=== PATIENT | female | born 2000 | race Caucasian/White ===

== ENCOUNTER 2018-05-19 05:53 | Emergency (ER) | payer OTHER ==
[~2018-05-19] VITALS: Ht 152.4 cm; Wt 72.6 kg
[~2018-05-19 05:53] MED LIST: CIPR250T30 PO
[2018-05-19] MEDS ORDERED: IV NORMAL SALINE 1000ML BAG 1,000 ML IV ONE (06:30)
[2018-05-19 06:43] LABS: BASO # 0.1 x10^3/uL (0.0-0.2); BASO % 1 % (0-3); EOS # 0.3 x10^3/uL (0.0-0.7); EOS % 4 % (0-3); HEMATOCRIT 38.7 % (36.0-47.0); HEMOGLOBIN 12.8 g/dL (12.0-15.5); LYMPH # 3.3 x10^3/uL (1.0-4.8); LYMPH % 44 % (24-48); MEAN CORPUSCULAR HEMOGLOBIN 29 pg (25-35); MEAN CORPUSCULAR HGB CONC 33 g/dL (31-37); MEAN CORPUSCULAR VOLUME 87 fL (79-100); MONO # 0.5 x10^3/uL (0.0-1.1); MONO % 7 % (0-9); NEUT # 3.3 x10^3uL (1.8-7.7); NEUT % 44 % (31-73); PLATELET COUNT 334 x10^3/uL (140-400); RED BLOOD COUNT 4.43 x10^6/uL (3.50-5.40); RED CELL DISTRIBUTION WIDTH 14.1 % (11.5-14.5); WHITE BLOOD COUNT 7.5 x10^3/uL (4.0-11.0)
[2018-05-19] MEDS ORDERED: ONDANSETRON PF 4 MG/2 ML VIAL. IV ONE (06:45)
[2018-05-19] MEDS ORDERED: fentaNYL PF VIAL 100 MCG/2 ML VIAL IV ONE (06:45)
[2018-05-19 06:53] LABS: CALCIUM 8.4 mg/dL (8.5-10.1); CREATININE 0.7 mg/dL (0.6-1.0); GFR 106.7; POTASSIUM 3.8 mmol/L (3.5-5.1)
[2018-05-19 06:59] LABS: ALBUMIN 3.3 g/dL (3.4-5.0); ALBUMIN/GLOBULIN RATIO 0.9 (1.0-1.7); TOTAL BILIRUBIN 0.2 mg/dL (0.2-1.0); TOTAL PROTEIN 6.9 g/dL (6.4-8.2)
--- NOTE | 2018-05-19 07:01 | RAD ---
Indication:RUQ PAIN TECHNIQUE: Grayscale, color Doppler and spectral waveform is of the abdomen obtained. COMPARISON:None FINDINGS:Visualized pancreas within normal limits. IVC is patent. Liver is mildly enlarged in size measuring 18 cm in longest dimension with diffusely increased echogenicity. Hydropic gallbladder. No pericholecystic fluid or gallbladder wall thickening. CBD is mildly dilated measuring 7 mm in diameter. Right kidney measures 11.5 cm in length without hydronephrosis. Layering stones are seen in the gallbladder. IMPRESSION: 1. Mild hepatomegaly with hepatic steatosis. 2. Cholelithiasis without imaging evidence of acute cholecystitis. 3. Mildly dilated CBD which may be secondary to distal obstructing stone or stricture. Nonemergent MRCP may be obtained for further evaluation. Electronically signed by: Mitchel Mackenzie DO (05/19/2018 6:58 AM) [id number]
--- NOTE | 2018-05-19 07:09 | PHYS DOC ---
Past Medical History Past Medical History: Asthma Past Surgical History: Appendectomy Alcohol Use: None Drug Use: None Adult General Chief Complaint Chief Complaint: GI PROBLEM HPI HPI 18-year-old otherwise healthy female presents with acute onset of epigastric/ right upper quadrant discomfort. She states the pain started early this morning and woke her up from sleep. She states it's not associated with eating. She does have some nausea but has not vomited. She denies any melena or hematemesis. She denies any fever chills or sweats. Again, she states this is the first time this is ever happened.[] Review of Systems Review of Systems Constitutional: Denies fever or chills [] Eyes: Denies change in visual acuity, redness, or eye pain [] HENT: Denies nasal congestion or sore throat [] Respiratory: Denies cough or shortness of breath [] Cardiovascular: No additional information not addressed in HPI [] GI: Per history of present illness[] : Denies dysuria or hematuria [] Musculoskeletal: Denies back pain or joint pain [] Integument: Denies rash or skin lesions [] Neurologic: Denies headache, focal weakness or sensory changes [] Endocrine: Denies polyuria or polydipsia [] All other systems were reviewed and found to be within normal limits, except as documented in this note. Current Medications Current Medications Current Medications Medications (Trade) Dose Ordered Sig/Robbie Start Time Stop Time Status Last Admin Dose Admin Fentanyl Citrate (Fentanyl 2ml Vial) 50 mcg 1X ONCE 05/19/18 06:45 05/19/18 06:46 DC 05/19/18 06:51 50 MCG Ondansetron HCl (Zofran) 4 mg 1X ONCE 05/19/18 06:45 05/19/18 06:46 DC 05/19/18 06:48 4 MG Sodium Chloride 1,000 ml @ 1,000 mls/hr 1X ONCE 05/19/18 06:30 05/19/18 07:29 Allergies Allergies Allergies Coded Allergies Type Severity Reaction Last Updated Verified No Known Drug Allergies 11/28/16 No Physical Exam Physical Exam Constitutional: Well developed, well nourished, moderate distress, non-toxic appearance. [] HENT: Normocephalic, atraumatic, bilateral external ears normal, oropharynx moist, no oral exudates, nose normal. [] Eyes: PERRLA, EOMI, conjunctiva normal, no discharge. [] Neck: Normal range of motion, no tenderness, supple, no stridor. [] Cardiovascular:Heart rate regular rhythm, no murmur [] Lungs & Thorax: Bilateral breath sounds clear to auscultation [] Abdomen: Right upper quadrant tender to palp negative Quigley's[] Skin: Warm, dry, no erythema, no rash. [] Back: No tenderness, no CVA tenderness. [] Extremities: No tenderness, no cyanosis, no clubbing, ROM intact, no edema. [] Neurologic: Alert and oriented X 3, normal motor function, normal sensory function, no focal deficits noted. [] Psychologic: Anxious[] Current Patient Data Vital Signs Vital Signs Date Time Temp Pulse Resp B/P (MAP) Pulse Ox O2 Delivery O2 Flow Rate FiO2 05/19/18 06:51 Room Air 05/19/18 06:05 97.6 87 24 118/78 (91) 100 97.6 Lab Values Laboratory Tests Test 05/19/18 06:25 White Blood Count 7.5 x10^3/uL (4.0-11.0) Red Blood Count 4.43 x10^6/uL (3.50-5.40) Hemoglobin 12.8 g/dL (12.0-15.5) Hematocrit 38.7 % (36.0-47.0) Mean Corpuscular Volume 87 fL (79-100) Mean Corpuscular Hemoglobin 29 pg (25-35) Mean Corpuscular Hemoglobin Concent 33 g/dL (31-37) Red Cell Distribution Width 14.1 % (11.5-14.5) Platelet Count 334 x10^3/uL (140-400) Neutrophils (%) (Auto) 44 % (31-73) Lymphocytes (%) (Auto) 44 % (24-48) Monocytes (%) (Auto) 7 % (0-9) Eosinophils (%) (Auto) 4 % (0-3) H Basophils (%) (Auto) 1 % (0-3) Neutrophils # (Auto) 3.3 x10^3uL (1.8-7.7) Lymphocytes # (Auto) 3.3 x10^3/uL (1.0-4.8) Monocytes # (Auto) 0.5 x10^3/uL (0.0-1.1) Eosinophils # (Auto) 0.3 x10^3/uL (0.0-0.7) Basophils # (Auto) 0.1 x10^3/uL (0.0-0.2) Sodium Level 140 mmol/L (136-145) Potassium Level 3.8 mmol/L (3.5-5.1) Chloride Level 102 mmol/L (98-107) Carbon Dioxide Level 23 mmol/L (21-32) Anion Gap 15 (6-14) H Blood Urea Nitrogen 15 mg/dL (7-20) Creatinine 0.7 mg/dL (0.6-1.0) Estimated GFR (Cockcroft-Gault) 106.7 BUN/Creatinine Ratio 21 (6-20) H Glucose Level 103 mg/dL (70-99) H Calcium Level 8.4 mg/dL (8.5-10.1) L Total Bilirubin 0.2 mg/dL (0.2-1.0) Aspartate Amino Transferase (AST) 39 U/L (15-37) H Alanine Aminotransferase (ALT) 58 U/L (14-59) Alkaline Phosphatase 62 U/L (46-116) Total Protein 6.9 g/dL (6.4-8.2) Albumin 3.3 g/dL (3.4-5.0) L Albumin/Globulin Ratio 0.9 (1.0-1.7) L Lipase 208 U/L (73-393) Laboratory Tests 05/19/18 06:25 Laboratory Tests 05/19/18 06:25 EKG EKG [] Radiology/Procedures Radiology/Procedures [] Impressions: PROCEDURE: ABDOMEN LTD Indication:RUQ PAIN TECHNIQUE: Grayscale, color Doppler and spectral waveform is of the abdomen obtained. COMPARISON:None FINDINGS:Visualized pancreas within normal limits. IVC is patent. Liver is mildly enlarged in size measuring 18 cm in longest dimension with diffusely increased echogenicity. Hydropic gallbladder. No pericholecystic fluid or gallbladder wall thickening. CBD is mildly dilated measuring 7 mm in diameter. Right kidney measures 11.5 cm in length without hydronephrosis. Layering stones are seen in the gallbladder. IMPRESSION: 1. Mild hepatomegaly with hepatic steatosis. 2. Cholelithiasis without imaging evidence of acute cholecystitis. 3. Mildly dilated CBD which may be secondary to distal obstructing stone or stricture. Nonemergent MRCP may be obtained for further evaluation. Course & Med Decision Making Course & Med Decision Making Pertinent Labs and Imaging studies reviewed. (See chart for details) [ED course: Evaluation reveals a 18-year-old female who presents with acute onset of right upper quadrant/epigastric pain. She was given IV fluids known Zofran which did help alleviate her symptoms. Her gallbladder ultrasound showed cholelithiasis without evidence of cholecystitis but a mildly increased diameter of her common bile duct. I've explained all of this to the patient. I will have her follow-up with Dr. Candelario to assess need for cholecystectomy.] Dragon Disclaimer Dragon Disclaimer This electronic medical record was generated, in whole or in part, using a voice recognition dictation system. Departure Departure Impression: Primary Impression: Biliary colic Additional Impression: Cholelithiasis Disposition: HOME, SELF-CARE Condition: IMPROVED Referrals: NO PCP (PCP) MARILEE CANDELARIO MD Call Dr. Candelario today to schedule a follow-up appointment. Patient Instructions: Biliary Colic, Cholelithiasis Additional Instructions: Please call Dr. Candealrio's office today to schedule a follow-up appointment. Scripts Ondansetron Hcl (ZOFRAN) 4 Mg Tablet 1 TAB PO Q8HRS PRN for NAUSEA, #20 TAB Prov: AYLIN MARTELL DO 05/19/18 Ranitidine Hcl (ZANTAC) 300 Mg Tablet 1 TAB PO QHS for reflux, #90 TAB 3 Refills Prov: AYLIN MARTELL DO 05/19/18 Hydrocodone/Apap 5-325 (NORCO 5-325 TABLET) 1 Each Tablet 1 TAB PO PRN Q6HRS PRN for PAIN, #10 TAB 0 Refills Prov: AYLIN MARTELL DO 05/19/18 Problem Qualifiers Additional Impression: Cholelithiasis Cholelithiasis location: gallbladder Cholecystitis presence: without cholecystitis Biliary obstruction: without biliary obstruction Qualified Codes: K80.20 - Calculus of gallbladder without cholecystitis without obstruction AYLIN MARTELL DO May 19, 2018 07:09
[2018-05-19] MEDS ORDERED: RANI300T3 PO (07:17)
[2018-05-19] MEDS ORDERED: ONDA4TAB7 PO (07:17)
[2018-05-19] MEDS ORDERED: HYDR-3164 PO (07:17)
[2018-05-19 07:45] VITALS: BP 110/77
== END 2018-05-19 08:12 | disposition home or self-care (01) ==
LOC: ER 05:53
DX: K80.70 Calculus of gallbladder and bile duct without cholecystitis without obstruction (principal); K76.0 Fatty (change of) liver, not elsewhere classified; J45.909 Unspecified asthma, uncomplicated; Z90.89 Acquired absence of other organs
CPT/HCPCS: 36415; 76705; 80053; 83690; 85025; 96374; 96375; 99284; J2405; J3010; J7030